=== PATIENT | female | born 1960 | race African-American/Black ===

== ENCOUNTER 2018-11-01 11:15 | Emergency (ER) | payer OTHER ==
[2018-11-01 12:37] LABS: Absolute Lymphocytes (CBC) 2.2 K/uL (0.7-4.9); Absolute Monocytes 0.4 K/uL (0.1-1.3); Absolute Neutrophil 4.9 K/uL (1.8-8.0); Basophils % 0.4 % (0-1.3); Eosinophils % 1.7 % (0-4.4); Hematocrit 39.8 % (36.0-45.0); Lymphocytes % 28.4 % (15.3-44.8); MCH 30.2 pg (27.0-35.0); MCV 88.8 fL (80-100); MPV 9.8 fL (7.6-11.3); Monocytes % 5.8 % (3.3-12.3); RBC Red Blood Cell Count 4.47 M/uL (3.86-4.86)
[2018-11-01] MEDS ORDERED: NA CHLORIDE 0.9% 1,000 ML ONE (12:40)
[2018-11-01] MEDS ORDERED: ONDANSETRON 4 MG/2 ML VIAL ONE (12:40)
[2018-11-01 12:53] LABS: Albumin 4.2 g/dL (3.4-5.0); Bilirubin Total 0.5 mg/dL (0.2-1.0); Potassium 3.4 mmol/L (3.5-5.1); Protein, Total 8.9 g/dL (6.4-8.2)
[2018-11-01 13:37] LABS: Urine Blood NEGATIVE (NEG); Urine Glucose NEGATIVE (NEG); Urine Protein NEGATIVE (NEG); Urine pH 5.5 (5.0-7.0)
--- NOTE | 2018-11-01 16:14 | ER ---
Nurse's Notes [facility] Name: Fang Aldridge Age: 58 yrs Sex: Female : 1960 Arrival Date: 11/01/2018 Time: 11:18 Bed 15 Private MD: Eddie Lincoln R Diagnosis: Nausea;Weakness Presentation: 11/01 11:27 Presenting complaint: Patient states: Headache the last few days, dizziness and nausea la1 since Monday with fatigue. Transition of care: patient was not received from another setting of care. Onset of symptoms was November 01, 2018. Risk Assessment: Do you want to hurt yourself or someone else? Patient reports no desire to harm self or others. Initial Sepsis Screen: Does the patient meet any 2 criteria? No. Patient's initial sepsis screen is negative. Does the patient have a suspected source of infection? No. Patient's initial sepsis screen is negative. Care prior to arrival: None. 11:27 Method Of Arrival: Ambulatory la1 11:27 Acuity: CONNIE 3 la1 Historical: - Allergies: 11:27 No Known Allergies; la1 - Home Meds: 12:42 atorvastatin 10 mg Oral tab 1 tab once daily [Active]; metformin 500 mg Oral tab 1 tab ch 2 times per day [Active]; lisinopril 20 mg/25 mg hydrochlorothiazide Oral tab 1 tab once daily [Active]; meloxicam 7.5 mg oral tab 1 tab once daily [Active]; metoprolol tartrate 100 mg Oral tab 1 tab 2 times per day [Active]; - PMHx: 11:27 Diabetes - NIDDM; Hyperlipidemia; Hypertension; la1 - PSHx: 12:42 Hysterectomy; Appendectomy; ch - Immunization history:: Adult Immunizations up to date. - Social history:: Smoking status: Patient/guardian denies using tobacco. - Ebola Screening: : No symptoms or risks identified at this time. Screenin:31 Abuse screen: Denies threats or abuse. Denies injuries from another. Nutritional ch screening: No deficits noted. Tuberculosis screening: No symptoms or risk factors identified. Fall Risk None identified. Assessment: 12:39 Reassessment: Patient appears in no apparent distress at this time. Patient and/or ch family updated on plan of care and expected duration. Pain level reassessed. Patient is alert, oriented x 3, equal unlabored respirations, skin warm/dry/pink. General: Appears in no apparent distress. comfortable, Behavior is calm, cooperative, appropriate for age. Pain: Complains of pain in head Pain currently is 4 out of 10 on a pain scale. Pain began suddenly. Neuro: No deficits noted. Respiratory: Airway is patent Respiratory effort is even, unlabored, Breath sounds are clear bilaterally. GI: Abdomen is round non-distended, Bowel sounds present X 4 quads. Abd is soft and non tender X 4 quads. Derm: Skin is pink, warm \T\ dry. 13:59 Reassessment: Patient appears in no apparent distress at this time. Patient and/or ch family updated on plan of care and expected duration. Pain level reassessed. Patient is alert, oriented x 3, equal unlabored respirations, skin warm/dry/pink. pt states she is still lightheaded but feeling better. Patient states feeling better. Patient states symptoms have improved. 15:16 Reassessment: Patient appears in no apparent distress at this time. Patient and/or ch family updated on plan of care and expected duration. Pain level reassessed. Patient is alert, oriented x 3, equal unlabored respirations, skin warm/dry/pink. Patient states feeling better. Patient states symptoms have improved. 15:48 Reassessment: Patient appears in no apparent distress at this time. Patient and/or ch family updated on plan of care and expected duration. Pain level reassessed. lab contacted, states it will be about 15 min more. 16:31 Reassessment: AWAITING DEBRA TO COME REVIEW RESULTS WITH PT, SHE STATES SHE HAS QUESTIONS TO WHY SHE IS SO TIRED. 16:41 Reassessment: Patient appears in no apparent distress at this time. RESULTS REVIEWED WITH PT, PT DISCHARGED. Vital Signs: 11:28 BP 173 / 96; Pulse 88; Resp 16; Temp 97.1; Pulse Ox 98% on R/A; Weight 93.89 kg; Height la1 5 ft. 4 in. (162.56 cm); 12:39 BP 141 / 94; Pulse 73; Resp 16; Temp 98.3; Pulse Ox 99% on R/A; Pain 4/10; ch 13:59 BP 157 / 89; Pulse 64; Resp 14; Temp 98.3; Pulse Ox 99% on R/A; Pain 0/10; ch 15:15 BP 158 / 97; Pulse 68; Resp 15; Pulse Ox 98% on R/A; Pain 0/10; ch 16:31 BP 149 / 82; Pulse 70; Resp 16; Temp 98.1; Pulse Ox 99% on R/A; Pain 0/10; ch 11:28 Body Mass Index 35.53 (93.89 kg, 162.56 cm) la1 ED Course: 11:18 Patient arrived in ED. sb2 11:19 Eddie Lincoln MD is Private Physician. sb2 11:27 Triage completed. la1 11:27 Arm band placed on right wrist. la1 11:31 Debra Dubois PA is PHCP. jmm 11:31 Bari Gómez MD is Attending Physician. jmm 12:14 Regina Khan, EDER is Primary Nurse. ch 12:20 Inserted saline lock: 22 gauge in right antecubital area, using aseptic technique. jp3 Blood collected. 12:20 Initial lab(s) drawn, by mi, sent to lab. Urine collected: clean catch specimen, clear, jp3 gabriel colored, Amount Voided: 80mL. 12:30 Pulse ox on. NIBP on. jp3 12:30 Pillow given. jp3 12:30 Patient has correct armband on for positive identification. Placed in gown. Bed in low ch position. Call light in reach. Side rails up X 1. 16:12 EKG done, by gas technician. reviewed by Debra BROOKE. dt2 16:13 Eddie Lincoln MD is Referral Physician. jm 16:33 No apparent distress. Resting quietly. ch 16:33 No provider procedures requiring assistance completed. IV discontinued, intact, ch bleeding controlled, No redness/swelling at site. Pressure dressing applied. Administered Medications: 12:38 Drug: NS 0.9% 1000 ml Route: IV; Rate: 1 bolus; Site: right antecubital; ch 15:48 Follow up: IV Status: Completed infusion; IV Intake: 1000ml ch 12:38 Drug: Zofran 4 mg Route: IVP; Site: right antecubital; ch 12:52 Follow up: Response: No adverse reaction ch 15:48 Follow up: Response: No adverse reaction; Marked relief of symptoms ch Intake: 15:48 IV: 1000ml; Total: 1000ml. ch Outcome: 16:13 Discharge ordered by . lindsey 16:33 Discharged to home ambulatory. 16:33 Condition: stable 16:33 Discharge instructions given to patient, Instructed on discharge instructions, medication usage, Demonstrated understanding of instructions, follow-up care, medications, Prescriptions given X 1. 16:43 Patient left the ED. Signatures: Regina Khan RN RN ch Mickail, Joel, PA PA jmm Attema, Lee, RN RN la1 Cassy Freed sb2 Lucinda Stauffer dt2 Magno Kern jp3 Corrections: (The following items were deleted from the chart) 15:16 15:15 Reassessment: Patient appears in no apparent distress at this time. Patient ch and/or family updated on plan of care and expected duration. Pain level reassessed. Patient is alert, oriented x 3, equal unlabored respirations, skin warm/dry/pink. IV attempts by myself, SIMRAN wang, and jovanna Sparks tolerated well. IV and blood obtained now. ch
--- NOTE | 2018-11-01 16:14 | EDPHYS ---
Physician Documentation [facility] Name: Fang Aldridge Age: 58 yrs Sex: Female : 1960 Arrival Date: 11/01/2018 Time: 11:18 Bed 15 Private MD: Eddie Lincoln R ED Physician Bari Gómez HPI: 11/01 11:52 This 58 yrs old Black Female presents to ER via Ambulatory with complaints of Nausea, jmm Headache, Weakness. 11:52 The patient presents to the emergency department with nausea. Onset: The jmm symptoms/episode began/occurred gradually, 2 day(s) ago. Possible causes: bad food exposure, crab. This is a 58 year old female with a history of DM, HLP, HTN that presents to the ED with complains of nausea after eating crab 2 days ago. Patient states she developed generalized weakness and headache yesterday. headache is similar to previous headaches. Denies cough, chest pain, denies shortness of breath. Patient states having decreased appetite is is concerned she may be dehydrated. Denies abdominal pain. . Historical: - Allergies: 11:27 No Known Allergies; la1 - Home Meds: 12:42 atorvastatin 10 mg Oral tab 1 tab once daily [Active]; metformin 500 mg Oral tab 1 tab ch 2 times per day [Active]; lisinopril 20 mg/25 mg hydrochlorothiazide Oral tab 1 tab once daily [Active]; meloxicam 7.5 mg oral tab 1 tab once daily [Active]; metoprolol tartrate 100 mg Oral tab 1 tab 2 times per day [Active]; - PMHx: 11:27 Diabetes - NIDDM; Hyperlipidemia; Hypertension; la1 - PSHx: 12:42 Hysterectomy; Appendectomy; ch - Immunization history:: Adult Immunizations up to date. - Social history:: Smoking status: Patient/guardian denies using tobacco. - Ebola Screening: : No symptoms or risks identified at this time. ROS: 11:52 Constitutional: Negative for fever, chills, and weight loss, Eyes: Negative for injury, jmm pain, redness, and discharge, Cardiovascular: Negative for chest pain, palpitations, and edema, Respiratory: Negative for shortness of breath, cough, wheezing, and pleuritic chest pain. 11:52 Abdomen/GI: Positive for nausea. 11:52 Neuro: Positive for headache. 11:52 All other systems are negative. Exam: 11:52 Constitutional: This is a well developed, well nourished patient who is awake, alert, jmm and in no acute distress. Head/Face: atraumatic. Eyes: EOMI, no conjunctival erythema appreciated ENT: Moist Mucus Membranes Neck: Trachea midline, Supple Chest/axilla: Normal chest wall appearance and motion. Cardiovascular: Regular rate and rhythm. No edema appreciated Respiratory: Normal respirations, no respiratory distress appreciated Abdomen/GI: Non distended, soft Back: Normal ROM Skin: General appearance color normal MS/ Extremity: Moves all extremities, no obvious deformities appreciated, no edema noted to the lower extremities Neuro: Awake and alert, normal gait Psych: Behavior is normal, Mood is normal, Patient is cooperative and pleasant Vital Signs: 11:28 BP 173 / 96; Pulse 88; Resp 16; Temp 97.1; Pulse Ox 98% on R/A; Weight 93.89 kg; Height la1 5 ft. 4 in. (162.56 cm); 12:39 BP 141 / 94; Pulse 73; Resp 16; Temp 98.3; Pulse Ox 99% on R/A; Pain 4/10; ch 13:59 BP 157 / 89; Pulse 64; Resp 14; Temp 98.3; Pulse Ox 99% on R/A; Pain 0/10; ch 15:15 BP 158 / 97; Pulse 68; Resp 15; Pulse Ox 98% on R/A; Pain 0/10; ch 16:31 BP 149 / 82; Pulse 70; Resp 16; Temp 98.1; Pulse Ox 99% on R/A; Pain 0/10; ch 11:28 Body Mass Index 35.53 (93.89 kg, 162.56 cm) la1 MDM: 11:52 Patient medically [facility]. [facility] 16:13 Data reviewed: vital signs, nurses notes, lab test result(s), EKG. Counseling: I had a [facility] detailed discussion with the patient and/or guardian regarding: the historical points, exam findings, and any diagnostic results supporting the discharge/admit diagnosis, lab results, radiology results, the need for outpatient follow up, to return to the emergency department if symptoms worsen or persist or if there are any questions or concerns that arise at home. 16:13 Response to treatment: the patient's symptoms have resolved after treatment, and as a [facility] result, I will discharge patient. 16:13 ED course: Patient is alert and non toxic in appearance in the ED. Headache is similar jmm to lindsay. Patient is afebrile. Neck is supple i do not suspect sah or meningitis. Patient symptom relieved with IVF and antiemetics. Abdomen is soft and non tender to palpation. patient advised to follow up with pcp or return to the ED if symptoms worsen. . 11/01 12:01 Order name: CBC with Diff; Complete Time: 13:24 [facility] 12 12:01 Order name: CMP; Complete Time: 13:24 [facility] 11/01 12:35 Order name: Urine Dipstick--Ancillary (enter results); Complete Time: 13:50 eb 11/01 12:41 Order name: Troponin (emerg Dept Use Only); Complete Time: 16:13 [facility] 11/01 12:01 Order name: Saline Lock; Complete Time: 13:01 [facility] 11/01 12:01 Order name: Urine Dipstick-Ancillary (obtain specimen); Complete Time: 13:01 [facility] 11/01 12:41 Order name: EKG - Nurse/Tech; Complete Time: 16:07 [facility] Administered Medications: 12:38 Drug: NS 0.9% 1000 ml Route: IV; Rate: 1 bolus; Site: right antecubital; ch 15:48 Follow up: IV Status: Completed infusion; IV Intake: 1000ml 12:38 Drug: Zofran 4 mg Route: IVP; Site: right antecubital; 12:52 Follow up: Response: No adverse reaction 15:48 Follow up: Response: No adverse reaction; Marked relief of symptoms Disposition: 18:02 Co-signature as Attending Physician, Bari Gómez MD. rn Disposition: 11/01/18 16:13 Discharged to Home. Impression: Nausea, Weakness. - Condition is Stable. - Discharge Instructions: Nausea, Adult. - Prescriptions for Zofran ODT 4 mg Oral tablet,disintegrating - place 1 tablet by TRANSLINGUAL route every 4-6 hours; 20 tablet. - Work release form, Medication Reconciliation Form, Thank You Letter, Antibiotic Education, Prescription Opioid Use form. - Follow up: Eddie Lincoln MD; When: 2 - 3 days; Reason: Recheck today's complaints, Continuance of care, Re-evaluation by your physician. Signatures: Dispatcher [employer] EDRegina Dunaway RN Gage Hernandez ch, PA PA jmm Nieto, Roman, MD MD rn Attema, Lee, RN RN la1 Corrections: (The following items were deleted from the chart) 16:43 16:13 11/01/2018 16:13 Discharged to Home. Impression: Nausea; Weakness. Condition is ch Stable. Forms are Medication Reconciliation Form, Thank You Letter, Antibiotic Education, Prescription Opioid Use. Follow up: Eddie Lincoln; When: 2 - 3 days; Reason: Recheck today's complaints, Continuance of care, Re-evaluation by your physician. lindsey
--- NOTE | 2018-11-02 08:29 | EKG ---
Test Date: 2018-11-01 Test Time: 15:59:45 Typesetting Supervisor: DEV MEASUREMENT RESULTS: Intervals: Rate: 64 OH: 188 QRSD: 84 QT: 428 QTc: 441 [place]: P: 19 OH: 188 QRS: 46 T: 51 INTERPRETIVE STATEMENTS: Normal sinus rhythm Normal ECG Compared to ECG 11/07/2007 09:59:24 Sinus bradycardia no longer present Electronically Signed On 11-02-18 08:28:56 DIRECTOR OF [employer] by Howard Winn
== END 2018-11-01 16:43 | disposition home or self-care (01) ==
LOC: ER 11:15
DX: R53.1 Weakness (principal); I10 Essential (primary) hypertension; E78.5 Hyperlipidemia, unspecified; E11.9 Type 2 diabetes mellitus without complications
CPT/HCPCS: 36415; 80053; 81003; 84484; 85025; 93005; 96361; 96374; 99284; J2405; J7030

== ENCOUNTER 2018-12-08 02:43 | Emergency (ER) | payer OTHER ==
[2018-12-08] MEDS ORDERED: NA CHLORIDE 0.9% 500 ML ONE (03:54)
[2018-12-08] MEDS ORDERED: DIPHENHYDRAMINE 50 MG/ML VIAL ONE (03:56)
[2018-12-08] MEDS ORDERED: NA CHLORIDE 0.9% 1,000 ML ONE (03:56)
[2018-12-08] MEDS ORDERED: ACETAMINOPHEN 325 MG TABLET ONE (03:56)
[2018-12-08] MEDS ORDERED: DEXAMETHASONE 10 MG/ML VIAL ONE (03:56)
[2018-12-08] MEDS ORDERED: CLINDAMYCIN 900MG/D5W 900 MG/50 ML IVPB IV ONE (03:56)
[2018-12-08] MEDS ORDERED: FAMOTIDINE 20 MG/2 ML VIAL IV ONE (03:57)
[2018-12-08 03:58] LABS: Absolute Lymphocytes (CBC) 1.4 K/uL (0.7-4.9); Absolute Monocytes 0.7 K/uL (0.1-1.3); Absolute Neutrophil 11.1 K/uL (1.8-8.0); Basophils % 0.4 % (0-1.3); Eosinophils % 0.7 % (0-4.4); Lymphocytes % 10.3 % (15.3-44.8); MPV 10.3 fL (7.6-11.3); Monocytes % 5.3 % (3.3-12.3); RBC Red Blood Cell Count 4.24 M/uL (3.86-4.86)
[2018-12-08 03:59] LABS: Protime INR 1.19
[2018-12-08 04:05] LABS: ALT/SGPT 15 U/L (12-78); AST/SGOT 11 U/L (15-37); Alkaline Phosphatase 125 U/L (45-117); BUN Blood Urea Nitrogen 16 mg/dL (7-18); Bicarbonate 27 mmol/L (21-32); Bilirubin Direct 0.1 mg/dL (0-0.2); Bilirubin Total 0.5 mg/dL (0.2-1.0); Glucose Level 142 mg/dL (74-106); Lipase 175 U/L (73-393); NT PRO-BNP 13 pg/mL (<125); Potassium 3.5 mmol/L (3.5-5.1); Protein, Total 8.4 g/dL (6.4-8.2); Sodium Level 139 mmol/L (136-145); Troponin (Emerg Dept Use Only) < 0.02 ng/mL (0.0-0.045)
--- NOTE | 2018-12-08 04:45 | ER ---
Nurse's Notes [facility] Name: Fang Aldridge Age: 58 yrs Sex: Female : 1960 Arrival Date: 12/08/2018 Time: 02:47 Bed 20 Private MD: Eddie Lincoln R Diagnosis: Acute tonsillitis;Fever, unspecified;Angioneurotic edema;Streptococcal pharyngitis Presentation: 12/08 02:55 Presenting complaint: Patient states: sore throat and nausea since lunch time aa1 yesterday. Also c/o pain to the back of her neck. Transition of care: patient was not received from another setting of care. Onset of symptoms was December 07, 2018. Risk Assessment: Do you want to hurt yourself or someone else? Patient reports no desire to harm self or others. Initial Sepsis Screen: Does the patient meet any 2 criteria? HR > 90 bpm. Does the patient have a suspected source of infection? No. Patient's initial sepsis screen is negative. Care prior to arrival: None. 02:55 Method Of Arrival: Ambulatory aa1 02:55 Acuity: CONNIE 3 aa1 Triage Assessment: 02:57 General: Appears in no apparent distress. comfortable, Behavior is calm, cooperative, aa1 appropriate for age. Historical: - Allergies: 02:57 No Known Allergies; aa1 - Home Meds: 03:01 metoprolol tartrate 100 mg Oral tab 1 tab 2 times per day [Active]; lisinopril 20 mg/25 ca1 mg hydrochlorothiazide Oral tab 1 tab once daily [Active]; metformin 500 mg Oral tab 1 tab 2 times per day [Active]; meloxicam 7.5 mg Oral tab 1 tab once daily [Active]; Atorvastatin Calcium 10mg 1 tablet every morning [Active]; - PMHx: 02:57 Diabetes - NIDDM; Hyperlipidemia; Hypertension; aa1 - PSHx: 02:57 Hysterectomy; Appendectomy; aa1 - Immunization history:: Flu vaccine is not up to date. - Social history:: Smoking status: Patient/guardian denies using tobacco. - Ebola Screening: : Patient denies exposure to infectious person Patient denies travel to an Ebola-affected area in the 21 days before illness onset. - Family history:: not pertinent. Screenin:01 Abuse screen: Denies threats or abuse. Denies injuries from another. Nutritional ca1 screening: No deficits noted. Difficulty chewing/swallowing? Yes. Tuberculosis screening: No symptoms or risk factors identified. Fall Risk None identified. Assessment: 03:01 General: Appears in no apparent distress. ill, Behavior is calm, cooperative, ca1 appropriate for age. Pain: Complains of pain in throat, back of neck, abdomen Pain currently is 6 out of 10 on a pain scale. Aggravated by swallowing. Neuro: Level of Consciousness is awake, alert, obeys commands, Oriented to person, place, time, situation, Appropriate for age. Cardiovascular: Heart tones S1 S2 present Capillary refill < 3 seconds Patient's skin is warm and dry. Respiratory: Airway is patent Trachea midline Respiratory effort is even, unlabored, Respiratory pattern is regular, symmetrical, Breath sounds are clear bilaterally. GI: Abdomen is round non-distended, Bowel sounds present X 4 quads. Abd is soft X 4 quads Reports nausea. : No signs and/or symptoms were reported regarding the genitourinary system. EENT: Throat is reddened. Derm: Skin is intact, is healthy with good turgor, Skin is pink, warm \T\ dry. Musculoskeletal: Circulation, motion, and sensation intact. Capillary refill < 3 seconds. 03:58 Reassessment: patient to CT scan. ca1 05:00 Reassessment: Patient appears in no apparent distress at this time. Patient is alert, ca1 oriented x 3, equal unlabored respirations, skin warm/dry/pink. Vital Signs: 02:57 BP 155 / 95; Pulse 129; Resp 18; Temp 100.3; Pulse Ox 98% on R/A; Weight 91.17 kg; aa1 Height 5 ft. 4 in. (162.56 cm); Pain 0/10; 03:45 BP 141 / 95; Pulse 110; Resp 18; Pulse Ox 95% on R/A; ca1 05:00 BP 141 / 70; Pulse 98; Resp 18; Pulse Ox 100% on R/A; ca1 02:57 Body Mass Index 34.50 (91.17 kg, 162.56 cm) aa1 ED Course: 02:47 Patient arrived in ED. es 02:48 Eddie Lincoln MD is Private Physician. es 02:56 Triage completed. aa1 02:56 Aimee Yin, EDER is Primary Nurse. ca1 02:57 Arm band placed on right wrist. aa1 03:01 Patient has correct armband on for positive identification. Bed in low position. Call ca1 light in reach. Side rails up X 1. Pulse ox on. NIBP on. Warm blanket given. 03:07 Andry Saavedra MD is Attending Physician. karie 03:18 Initial lab(s) drawn, by me, sent to lab. Inserted saline lock: 20 gauge in right ca1 antecubital area, using aseptic technique. Blood collected. 04:[address] via wheelchair. kw1 04:15 Patient moved to radiology via wheelchair. kw1 04:18 X-ray completed. Patient tolerated procedure well. sg4 04:18 Patient moved back from radiology. sg4 04:18 Soft Tissue Neck W/Contr CT In Process Unspecified. EDMS 04:19 XRAY Chest (1 view) In Process Unspecified. EDMS 04:44 Eddie Lincoln MD is Referral Physician. karei 05:00 No provider procedures requiring assistance completed. IV discontinued, intact, ca1 bleeding controlled, No redness/swelling at site. Pressure dressing applied. Administered Medications: 03:18 Drug: NS 0.9% 500 ml Route: IV; Rate: bolus; Site: right antecubital; ca1 05:04 Follow up: Response: No adverse reaction; IV Status: Completed infusion ca1 03:20 Drug: Pepcid 20 mg Route: IVP; Site: right antecubital; ca1 05:05 Follow up: Response: No adverse reaction ca1 03:20 Drug: Tylenol 650 mg Route: PO; ca1 05:06 Follow up: Response: No adverse reaction; Temperature is decreased ca1 03:22 Drug: Benadryl 25 mg Route: IVP; Site: right antecubital; ca1 05:06 Follow up: Response: No adverse reaction ca1 05:06 Follow up: Response: No adverse reaction ca1 03:25 Drug: Decadron - Dexamethasone 10 mg Route: IVP; Site: right antecubital; ca1 05:06 Follow up: Response: No adverse reaction ca1 03:30 Drug: Clindamycin 900 mg Route: IVPB; Infused Over: 30 mins; Site: right antecubital; ca1 05:06 Follow up: Response: No adverse reaction; IV Status: Completed infusion ca1 04:10 Drug: NS 0.9% 1000 ml Route: IV; Rate: 125 ml/hr; Site: right antecubital; ca1 05:20 Follow up: IV Status: Order to discontinue infusion; Patient Discharged ca1 05:00 Drug: Rocephin - (cefTRIAXone) 1 grams Route: IVPB; Infused Over: 30 mins; Site: right ca1 antecubital; 05:20 Follow up: Response: No adverse reaction; Medication administered at discharge.; IV ca1 Status: Completed infusion Intake: Outcome: 04:44 Discharge ordered by MD. tiwari 05:10 Discharged to home ambulatory. ca1 05:10 Condition: stable 05:10 Discharge instructions given to patient, Instructed on discharge instructions, follow up and referral plans. medication usage, Demonstrated understanding of instructions, follow-up care, medications, Prescriptions given X 7 05:19 Patient left the ED. ca1 Signatures: Dispatcher [employer] Crystal Ochoa, RN RN [email or web address] Andry Saavedra MD MD cha Salyer, Edna es Wilhelm, Kimberly kw1 Shelley Elliott 4 Aimee Yin RN RN ca1
--- NOTE | 2018-12-08 04:45 | EDPHYS ---
Physician Documentation [facility] Name: Fang Aldridge Age: 58 yrs Sex: Female : 1960 Arrival Date: 12/08/2018 Time: 02:47 Bed 20 Private MD: Eddie Lincoln R ED Physician Andry Saavedra HPI: 12/08 03:18 This 58 yrs old Black Female presents to ER via Ambulatory with complaints of Sore karie Throat, Nausea, throat swelling. 03:18 The patient presents with sore throat. The patient describes throat pain as burning, karie constant, raw. Onset: The symptoms/episode began/occurred 1 day(s) ago. Severity of symptoms: At their worst the symptoms were mild, in the emergency department the symptoms are unchanged. Modifying factors: The symptoms are alleviated by nothing, the symptoms are aggravated by swallowing. Associated signs and symptoms: Pertinent positives: fever. The patient has not experienced similar symptoms in the past. throat swelling, fever. Historical: - Allergies: 02:57 No Known Allergies; aa1 - Home Meds: 03:01 metoprolol tartrate 100 mg Oral tab 1 tab 2 times per day [Active]; lisinopril 20 mg/25 ca1 mg hydrochlorothiazide Oral tab 1 tab once daily [Active]; metformin 500 mg Oral tab 1 tab 2 times per day [Active]; meloxicam 7.5 mg Oral tab 1 tab once daily [Active]; Atorvastatin Calcium 10mg 1 tablet every morning [Active]; - PMHx: 02:57 Diabetes - NIDDM; Hyperlipidemia; Hypertension; aa1 - PSHx: 02:57 Hysterectomy; Appendectomy; aa1 - Immunization history:: Flu vaccine is not up to date. - Social history:: Smoking status: Patient/guardian denies using tobacco. - Ebola Screening: : Patient denies exposure to infectious person Patient denies travel to an Ebola-affected area in the 21 days before illness onset. - Family history:: not pertinent. ROS: 03:18 Eyes: Negative for injury, pain, redness, and discharge, Neck: Negative for injury, karie pain, and swelling, Cardiovascular: Negative for chest pain, palpitations, and edema, Respiratory: Negative for shortness of breath, cough, wheezing, and pleuritic chest pain, Abdomen/GI: Negative for abdominal pain, nausea, vomiting, diarrhea, and constipation, Back: Negative for injury and pain, : Negative for injury, bleeding, discharge, and swelling, MS/Extremity: Negative for injury and deformity, Skin: Negative for injury, rash, and discoloration, Neuro: Negative for headache, weakness, numbness, tingling, and seizure, Psych: Negative for depression, anxiety, suicide ideation, homicidal ideation, and hallucinations, Allergy/Immunology: Negative for hives, rash, and allergies, Endocrine: Negative for neck swelling, polydipsia, polyuria, polyphagia, and marked weight changes, Hematologic/Lymphatic: Negative for swollen nodes, abnormal bleeding, and unusual bruising. 03:18 Constitutional: Positive for body aches, chills, fever. 03:18 ENT: Positive for hoarseness, sore throat. Exam: 03:18 Eyes: Pupils equal round and reactive to light, extra-ocular motions intact. Lids and karie lashes normal. Conjunctiva and sclera are non-icteric and not injected. Cornea within normal limits. Periorbital areas with no swelling, redness, or edema. ENT: Nares patent. No nasal discharge, no septal abnormalities noted. Tympanic membranes are normal and external auditory canals are clear. Oropharynx with no redness, swelling, or masses, exudates, or evidence of obstruction, uvula midline. Mucous membranes moist. Neck: Trachea midline, no thyromegaly or masses palpated, and no cervical lymphadenopathy. Supple, full range of motion without nuchal rigidity, or vertebral point tenderness. No Meningismus. Chest/axilla: Normal chest wall appearance and motion. Nontender with no deformity. No lesions are appreciated. Respiratory: Lungs have equal breath sounds bilaterally, clear to auscultation and percussion. No rales, rhonchi or wheezes noted. No increased work of breathing, no retractions or nasal flaring. Abdomen/GI: Soft, non-tender, with normal bowel sounds. No distension or tympany. No guarding or rebound. No evidence of tenderness throughout. Back: No spinal tenderness. No costovertebral tenderness. Full range of motion. Female : Normal external genitalia. Skin: Warm, dry with normal turgor. Normal color with no rashes, no lesions, and no evidence of cellulitis. 03:18 Constitutional: The patient appears febrile. 03:18 Head/face: Noted is swelling, tenderness, that is mild, of the right eye, nose, left eye and mouth. 03:18 ENT: Posterior pharynx: Airway: no evidence of obstruction, Tonsils: bilaterally enlarged, with erythema, Uvula: midline, edematous, erythema, swelling, that is mild, erythema, that is moderate, exudate, is not appreciated, peritonsillar mass, is not appreciated, pooling of secretions, is not appreciated. Vital Signs: 02:57 BP 155 / 95; Pulse 129; Resp 18; Temp 100.3; Pulse Ox 98% on R/A; Weight 91.17 kg; aa1 Height 5 ft. 4 in. (162.56 cm); Pain 0/10; 03:45 BP 141 / 95; Pulse 110; Resp 18; Pulse Ox 95% on R/A; ca1 05:00 BP 141 / 70; Pulse 98; Resp 18; Pulse Ox 100% on R/A; ca1 02:57 Body Mass Index 34.50 (91.17 kg, 162.56 cm) aa1 MDM: 03:[address] [facility] 03:23 Data reviewed: vital signs, nurses notes, lab test result(s), EKG, radiologic studies, [facility] CT scan, plain films. 12/08 03:15 Order name: Basic Metabolic Panel; Complete Time: 04:[address] [facility] 12/08 03:15 Order name: CBC with Diff; Complete Time: 04:[address] [facility] 12/08 03:15 Order name: LFT's; Complete Time: 04:[address] [facility] 12/08 03:15 Order name: Magnesium; Complete Time: 04:[address] [facility] 12/08 03:15 Order name: NT PRO-BNP; Complete Time: 04:[address] [facility] 12/08 03:15 Order name: PT-INR; Complete Time: 04:[address] [facility] 12/08 03:15 Order name: Troponin (emerg Dept Use Only); Complete Time: 04:[address] [facility] 12/08 03:15 Order name: XRAY Chest (1 view) [facility] 12/08 03:15 Order name: Strep; Complete Time: 04:[address] [facility] 12/08 03:15 Order name: Soft Tissue Neck W/Contr CT [facility] 12/08 03:15 Order name: Lipase; Complete Time: 04:[address] [facility] 12/08 03:23 Order name: Urine Culture [facility] 01/12 05:07 Order name: Urine Dipstick--Ancillary (enter results) ar5 12/08 03:15 Order name: EKG; Complete Time: 03:[address] [facility] 12/08 03:15 Order name: Cardiac monitoring; Complete Time: 03:[address] [facility] 12/08 03:15 Order name: EKG - Nurse/Tech; Complete Time: 03:[address] [facility] 12/08 03:15 Order name: IV Saline Lock; Complete Time: 03:[address] [facility] 12/08 03:15 Order name: Labs collected and sent; Complete Time: 03:[address] [facility] 12/08 03:15 Order name: O2 Per Protocol; Complete Time: 03:[address] [facility] 12/08 03:15 Order name: O2 Sat Monitoring; Complete Time: 03:[address] [facility] 12/08 03:23 Order name: Urine Dipstick-Ancillary (obtain specimen); Complete Time: 04:[address] [facility] Administered Medications: 03:18 Drug: NS 0.9% 500 ml Route: IV; Rate: bolus; Site: right antecubital; ca1 05:04 Follow up: Response: No adverse reaction; IV Status: Completed infusion ca1 03:20 Drug: Pepcid 20 mg Route: IVP; Site: right antecubital; ca1 05:05 Follow up: Response: No adverse reaction ca1 03:20 Drug: Tylenol 650 mg Route: PO; ca1 05:06 Follow up: Response: No adverse reaction; Temperature is decreased ca1 03:22 Drug: Benadryl 25 mg Route: IVP; Site: right antecubital; ca1 05:06 Follow up: Response: No adverse reaction ca1 05:06 Follow up: Response: No adverse reaction ca1 03:25 Drug: Decadron - Dexamethasone 10 mg Route: IVP; Site: right antecubital; ca1 05:06 Follow up: Response: No adverse reaction ca1 03:30 Drug: Clindamycin 900 mg Route: IVPB; Infused Over: 30 mins; Site: right antecubital; ca1 05:06 Follow up: Response: No adverse reaction; IV Status: Completed infusion ca1 04:10 Drug: NS 0.9% 1000 ml Route: IV; Rate: 125 ml/hr; Site: right antecubital; ca1 05:20 Follow up: IV Status: Order to discontinue infusion; Patient Discharged ca1 05:00 Drug: Rocephin - (cefTRIAXone) 1 grams Route: IVPB; Infused Over: 30 mins; Site: right ca1 antecubital; 05:20 Follow up: Response: No adverse reaction; Medication administered at discharge.; IV ca1 Status: Completed infusion Disposition: 12/08/18 04:44 Discharged to Home. Impression: Acute tonsillitis, Fever, unspecified, Angioneurotic edema, Streptococcal pharyngitis. - Condition is Stable. - Discharge Instructions: Fever, Adult, Tonsillitis, Angioedema, Tonsillitis, [id number], Angioedema, [id number]. - Prescriptions for Benadryl 25 mg Oral Capsule - take 1 capsule by ORAL route every 6 hours As needed; 30 tablet. Clindamycin HCl 300 mg Oral Capsule - take 1 capsule by ORAL route every 6 hours for 10 days; 40 capsule. Norvasc 5 mg Oral Tablet - take 1 tablet by ORAL route once daily stop lisinopril; 20 tablet. Pepcid 20 mg Oral Tablet - take 1 tablet by ORAL route every 12 hours for 10 days; 20 tablet. EpiPen 0.3 mg Injection auto- injector - inject 1 pen by INTRAMUSCULAR route one time Inject into the outer portion of the thigh, through clothing if necessary. Indicated in the emergency treatment of allergic reactions; 1 Container. Hydrochlorothiazide 12.5 mg Oral Tablet - take 1 tablet by ORAL route once daily; 30 tablet. Medrol (Massimo) 4 mg Oral Tablets, Dose Pack - take 1 tablet by ORAL route as directed - follow package instructions; 1 packet. - Medication Reconciliation Form, Thank You Letter, Antibiotic Education, Prescription Opioid Use form. - Follow up: Eddie Lincoln; When: 2 - 3 days; Reason: Recheck today's complaints, Continuance of care, Re-evaluation by your physician. - Problem is new. - Symptoms have improved. Signatures: Dispatcher [employer] EDMS Crystal Juarez RN RN aa1 Andry Saavedra MD MD cha Acob, Cheryl, RN RN ca1 Corrections: (The following items were deleted from the chart) 05:19 04:44 12/08/2018 04:44 Discharged to Home. Impression: Acute tonsillitis; Fever, ca1 unspecified; Angioneurotic edema; Streptococcal pharyngitis. Condition is Stable. Discharge Instructions: Fever, Adult, Tonsillitis, Angioedema, Tonsillitis, [id number], Angioedema, [id number]. Prescriptions for Benadryl 25 mg Oral Capsule - take 1 capsule by ORAL route every 6 hours As needed; 30 tablet, Clindamycin HCl 300 mg Oral Capsule - take 1 capsule by ORAL route every 6 hours for 10 days; 40 capsule, Pepcid 20 mg Oral Tablet - take 1 tablet by ORAL route every 12 hours for 10 days; 20 tablet, Prednisone 20 mg Oral Tablet - take 2 tablet by ORAL route once daily for 5 days; 10 tablet, EpiPen 0.3 mg Injection auto-injector - inject 1 pen by INTRAMUSCULAR route one time Inject into the outer portion of the thigh, through clothing if necessary. Indicated in the emergency treatment of allergic reactions; 1 Container, Hydrochlorothiazide 12.5 mg Oral Tablet - take 1 tablet by ORAL route once daily; 30 tablet, Norvasc 5 mg Oral Tablet - take 1 tablet by ORAL route once daily stop lisinopril; 20 tablet. and Forms are Medication Reconciliation Form, Thank You Letter, Antibiotic Education, Prescription Opioid Use. Follow up: Eddie Lincoln; When: 2 - 3 days; Reason: Recheck today's complaints, Continuance of care, Re-evaluation by your physician. Problem is new. Symptoms have improved. karie
[2018-12-08] MEDS ORDERED: CEFTRIAXONE/SWI 1gm 1 GM/10 ML SYR ONE (05:06)
[2018-12-08 06:01] LABS: Urine Blood NEGATIVE (NEG); Urine Glucose NEGATIVE (NEG); Urine Protein NEGATIVE (NEG)
--- NOTE | 2018-12-08 06:36 | EKG ---
Test Date: 2018-12-08 Test Time: 03:36:32 Cost Control Analyst: ANTHONY MEASUREMENT RESULTS: Intervals: Rate: 109 [place]: 142 QRSD: 78 QT: 346 QTc: 465 [place]: P: 60 [place]: 142 QRS: 24 T: 53 INTERPRETIVE STATEMENTS: Sinus tachycardia Nonspecific T wave abnormality Abnormal ECG Compared to ECG 11/01/2018 15:59:45 T-wave abnormality now present Sinus rhythm no longer present Electronically Signed On 12-08-18 06:35:44 CIRCULATOR by Howard Winn
--- NOTE | 2018-12-08 11:06 | RAD REPORT ---
EXAM DESCRIPTION: CT - Soft Tissue Neck W/Contr - 12/08/2018 5:00 am CLINICAL HISTORY: Sore throat, nausea, neck pain, diabetes history A preliminary report was provided at the time of the study and reviewed prior to final report. TECHNIQUE: During dynamic enhancement using 100 milliliters nonionic IV contrast, axial 5 millimeter thick images of the neck were obtained. All CT scans are performed using dose optimization technique as appropriate and may include automated exposure control or mA/KV adjustment according to patient size. FINDINGS: Intracranial portion the examination is unremarkable. No globe or orbital content abnormal ity. Mastoid air cells are clear. No paranasal sinus acute finding. Enhancement is seen in each tonsi l. No tonsil or peritonsillar abscess. No retropharyngeal abscess or soft tissue thickening. Paraphar yngeal fat is normal. Mild enhancement seen along each fossa of Rosenm[place]. Nasopharyngeal mucosa yina ws a mild enhancement of the surface. No adenoid hypertrophy. No significant soft palate thickening. No tongue base or epiglottis abnormality. Vocal cords are norm al. Parotid, submandibular and thyroid gland tissues show no suspicious findings. No suspicious lymphaden opathy. IMPRESSION: Tonsillitis and pharyngitis pattern evident without abscess or other complicating factor .
--- NOTE | 2018-12-08 11:08 | RAD REPORT ---
EXAM DESCRIPTION: RAD - Chest Single View - 12/08/2018 4:21 am CLINICAL HISTORY: Nausea, sore throat, neck pain, cough COMPARISON: February 2017 TECHNIQUE: AP portable chest image was obtained 0418 hours . FINDINGS: No peripheral mass, consolidation or failure finding. Chronic interstitial lung disease is present not clearly different from comparison. Minimal edema or infiltrate could be masked. Heart an d vasculature are normal. No measurable pleural effusion and no pneumothorax. No acute bony abnormali ty seen. No acute aortic findings suspected. IMPRESSION: No acute cardiopulmonary process. Chronic interstitial lung disease is present similar to comparison. This could potentially mask early edema or infiltrate.
== END 2018-12-08 05:19 | disposition home or self-care (01) ==
LOC: ER 02:43
DX: J02.0 Streptococcal pharyngitis (principal); J03.90 Acute tonsillitis, unspecified; T78.3XXA Angioneurotic edema, initial encounter; I10 Essential (primary) hypertension; E78.5 Hyperlipidemia, unspecified; E11.9 Type 2 diabetes mellitus without complications
CPT/HCPCS: 36415; 70491; 71045; 80048; 80076; 81003; 83690; 83735; 83880; 84484; 85025; 85610; 87081; 87086; 87088; 93005; 96365; 96375; 99284; J0696; J1100; J7030; Q9967

== ENCOUNTER 2019-12-10 10:27 | Emergency (ER) | payer OTHER ==
--- OUTSIDE RECORDS SUMMARY | 2019-12-10 10:28 | XMS REPORT ---
:1960 Author Organization [facility] Address [address] [place] [address] [address] [place] [address] Care Team Providers Name Role Phone Unavailable Unavailable Unavailable Payers Payer Name Policy Type Policy Number Effective Date Expiration Date Problems This patient has no known problems. Allergies, Adverse Reactions, Alerts Allergy Name Allergy Status Severity Reaction(s) Onset Inactive Treating Comments Type Date Date Clinician No Known Drug DA Active U Intolerances - 00:00: 00 No Known DA Active U 2006- Contrast 6- Allergies 00:00: 00 No Known Drug DA Active U Allergies -14 00:00: 00 No Known Food DA Active U 2006-0 Allergies -14 00:00: 00 No Known Other DA Active U Allergies - 00:00: 00 Medications This patient has no known medications.
--- NOTE | 2019-12-10 12:02 | RAD REPORT ---
EXAM DESCRIPTION: US - UPPER EXTREMITY VENOUS UNILATE - 12/10/2019 11:53 am CLINICAL HISTORY: PAIN Arm pain and swelling COMPARISON: No comparisons FINDINGS: Left upper extremity venous system was interrogated with Doppler technique. Normal flow, c ompressibility and augmentation was noted. There is no DVT present. IMPRESSION: No evidence of left upper extremity deep venous thrombosis.
--- NOTE | 2019-12-10 12:26 | ER ---
Nurse's Notes [facility] Name: Fang Aldridge Age: 59 yrs Sex: Female : 1960 Arrival Date: 12/10/2019 Time: 10:29 Bed 26 Private MD: Eddie Lincoln R Diagnosis: Left arm pain;Dermatitis of left arm Presentation: 12/10 10:38 Presenting complaint: Patient states: woke up this morning with left arm pain, thought iw she slept on it, c/o pain to left bicep to hand , also had numbness to finger. Transition of care: patient was not received from another setting of care. Onset of symptoms was December 10, 2019. Risk Assessment: Do you want to hurt yourself or someone else? Patient reports no desire to harm self or others. Initial Sepsis Screen: Does the patient meet any 2 criteria? No. Patient's initial sepsis screen is negative. Does the patient have a suspected source of infection? No. Patient's initial sepsis screen is negative. Care prior to arrival: None. 10:38 Method Of Arrival: Ambulatory iw 10:38 Acuity: CONNIE 3 iw Historical: - Allergies: 10:41 No Known Allergies; iw - PMHx: 10:41 Diabetes - NIDDM; Hyperlipidemia; Hypertension; iw - PSHx: 10:41 Hysterectomy; Appendectomy; iw - Immunization history:: Adult Immunizations up to date. - Social history:: Smoking status: Patient/guardian denies using tobacco. - Ebola Screening: : Patient negative for fever greater than or equal to 101.5 degrees Fahrenheit, and additional compatible Ebola Virus Disease symptoms Patient denies exposure to infectious person Patient denies travel to an Ebola-affected area in the 21 days before illness onset No symptoms or risks identified at this time. Screenin:03 Abuse screen: Denies threats or abuse. Denies injuries from another. Nutritional ca1 screening: No deficits noted. Tuberculosis screening: No symptoms or risk factors identified. Fall Risk None identified. Assessment: 11:03 General: Appears in no apparent distress. comfortable, Behavior is calm, cooperative, ca1 appropriate for age. Pain: Complains of pain in left arm Pain currently is 7 out of 10 on a pain scale. Neuro: Level of Consciousness is awake, alert, obeys commands, Oriented to person, place, time, situation, Appropriate for age. Cardiovascular: Heart tones S1 S2 present Capillary refill < 3 seconds Patient's skin is warm and dry. Respiratory: Airway is patent Respiratory effort is even, unlabored, Respiratory pattern is regular, symmetrical, Breath sounds are clear bilaterally. GI: Abdomen is round non-distended, Bowel sounds present X 4 quads. Abd is soft and non tender X 4 quads. : No deficits noted. No signs and/or symptoms were reported regarding the genitourinary system. EENT: No deficits noted. No signs and/or symptoms were reported regarding the EENT system. Derm: Skin is intact, is healthy with good turgor, Skin is pink, warm \T\ dry. Musculoskeletal: Circulation, motion, and sensation intact. Capillary refill < 3 seconds. 12:12 Reassessment: Patient appears in no apparent distress at this time. Patient and/or ca1 family updated on plan of care and expected duration. Pain level reassessed. Patient is alert, oriented x 3, equal unlabored respirations, skin warm/dry/pink. 12:44 Reassessment: Patient appears in no apparent distress at this time. Patient is alert, ca1 oriented x 3, equal unlabored respirations, skin warm/dry/pink. Vital Signs: 10:41 BP 144 / 91; Pulse 110; Resp 16; Temp 97.4; Pulse Ox 97% on R/A; Weight 94.8 kg; Height iw 5 ft. 4 in. (162.56 cm); Pain 10/10; 11:55 BP 144 / 84; Pulse 74; Resp 16 S; Pulse Ox 100% on R/A; ca1 12:44 BP 126 / 94; Pulse 78; Resp 17 S; Pulse Ox 100% on R/A; ca1 10:41 Body Mass Index 35.87 (94.80 kg, 162.56 cm) iw ED Course: 10:29 Patient arrived in ED. mr 10:30 Eddie Lincoln MD is Private Physician. mr 10:40 Triage completed. iw 10:41 Arm band placed on. iw 10:45 Pelon Lew MD is Attending Physician. ps1 10:48 Aimee Yin, EDER is Primary Nurse. ca1 11:03 Patient has correct armband on for positive identification. Bed in low position. Call ca1 light in reach. Side rails up X 1. Pulse ox on. NIBP on. Warm blanket given. 11:03 No provider procedures requiring assistance completed. Patient did not have IV access ca1 during this emergency room visit. 11:07 UPPER EXTREMITY VENOUS UNILATE In Process Unspecified. EDMS 12:25 Eddie Lincoln MD is Referral Physician. ps1 Administered Medications: 12: Drug: Decadron - Dexamethasone 10 mg {Note: GIVEN PO.} Route: IVP; Site: Other; ca1 12:38 Follow up: Response: No adverse reaction mg2 12:28 Drug: Motrin 600 mg Route: PO; ca1 12:38 Follow up: Response: No adverse reaction mg2 Outcome: 12:25 Discharge ordered by MD. ps1 12:45 Discharged to home ambulatory. ca1 12:45 Condition: stable 12:45 Discharge instructions given to patient, Instructed on discharge instructions, follow up and referral plans. medication usage, Demonstrated understanding of instructions, follow-up care, medications, Prescriptions given X 2. 12:45 Patient left the ED. ca1 Signatures: Dispatcher [employer] EDVT Talia Massey mr Sigrid Hutchinson, EDER RN iw Pelon Lew MD MD ps1 Colton Stauffer RN RN mg2 Aimee Yin RN RN ca1
--- NOTE | 2019-12-10 12:26 | EDPHYS ---
Physician Documentation [facility] Name: Fang Aldridge Age: 59 yrs Sex: Female : 1960 Arrival Date: 12/10/2019 Time: 10:29 Bed 26 Private MD: Eddie Lincoln R ED Physician Pelon Lew HPI: 12/10 12:19 This 59 yrs old Black Female presents to ER via Ambulatory with complaints of Arm Pain. ps1 12:19 patient states that she has atraumatic swelling of the left arm localized to the biceps ps1 muscle. She works in a [email or web address] type position and is right hand dominant and cant think of any incident of left arm involvement. Pain is mild to moderate and worse with movement or squeezing the area. Mild area of circumscribed induration that appears CW contact dermatitis. Patient cannot think of anything other than her shirt that is new. She does have a circumferential linear marking on where the end of the sleeve contacts the skin. . Historical: - Allergies: 10:41 No Known Allergies; iw - PMHx: 10:41 Diabetes - NIDDM; Hyperlipidemia; Hypertension; iw - PSHx: 10:41 Hysterectomy; Appendectomy; iw - Immunization history:: Adult Immunizations up to date. - Social history:: Smoking status: Patient/guardian denies using tobacco. - Ebola Screening: : Patient negative for fever greater than or equal to 101.5 degrees Fahrenheit, and additional compatible Ebola Virus Disease symptoms Patient denies exposure to infectious person Patient denies travel to an Ebola-affected area in the 21 days before illness onset No symptoms or risks identified at this time. ROS: 12:19 Constitutional: Negative for fever, chills, and weight loss, Eyes: Negative for injury, ps1 pain, redness, and discharge, ENT: Negative for injury, pain, and discharge, Cardiovascular: Negative for chest pain, palpitations, and edema, Respiratory: Negative for shortness of breath, cough, wheezing, and pleuritic chest pain, Abdomen/GI: Negative for abdominal pain, nausea, vomiting, diarrhea, and constipation, MS/Extremity: Negative for injury and deformity, Neuro: Negative for headache, weakness, numbness, tingling, and seizure, Psych: Negative for depression, anxiety, suicide ideation, homicidal ideation, and hallucinations. 12:19 Skin: Positive for urticarial appearing wheels on the left arm with circumfrential linear yohana where the skin contacts the shirt sleeve. Exam: 12:19 Constitutional: This is a well developed, well nourished patient who is awake, alert, ps1 and in no acute distress. Head/Face: Normocephalic, atraumatic. Eyes: Pupils equal round and reactive to light, extra-ocular motions intact. Lids and lashes normal. Conjunctiva and sclera are non-icteric and not injected. Chest/axilla: Normal chest wall appearance and motion. Nontender with no deformity. No lesions are appreciated. Cardiovascular: Regular rate and rhythm. No gallops, murmurs, or rubs. Normal PMI, no JVD. No pulse deficits. Respiratory: Lungs have equal breath sounds bilaterally, clear to auscultation and percussion. No rales, rhonchi or wheezes noted. No increased work of breathing, no retractions or nasal flaring. Abdomen/GI: Soft, non-tender, with normal bowel sounds. No distension or tympany. No guarding or rebound. No evidence of tenderness throughout. Skin: Warm, dry with normal turgor. Normal color with no rashes, no lesions, and no evidence of cellulitis. MS/ Extremity: Pulses equal, no cyanosis. Neurovascular intact. Full, normal range of motion. Neuro: Awake and alert, GCS 15, oriented to person, place, time, and situation. Cranial nerves II-XII grossly intact. Sensory grossly intact. Vital Signs: 10:41 BP 144 / 91; Pulse 110; Resp 16; Temp 97.4; Pulse Ox 97% on R/A; Weight 94.8 kg; Height iw 5 ft. 4 in. (162.56 cm); Pain 10/10; 11:55 BP 144 / 84; Pulse 74; Resp 16 S; Pulse Ox 100% on R/A; ca1 12:44 BP 126 / 94; Pulse 78; Resp 17 S; Pulse Ox 100% on R/A; ca1 10:41 Body Mass Index 35.87 (94.80 kg, 162.56 cm) iw MDM: 11:23 Patient medically screened. snw 12:19 Differential diagnosis: contusion, contact dermatitis. DVT, tendonitis, and others. ps1 Data reviewed: vital signs, nurses notes. 12/10 10:59 Order name: UPPER EXTREMITY VENOUS UNILATE; Complete Time: 12:15 EDMS Administered Medications: 12:26 Drug: Decadron - Dexamethasone 10 mg {Note: GIVEN PO.} Route: IVP; Site: Other; ca1 12:38 Follow up: Response: No adverse reaction mg2 12:28 Drug: Motrin 600 mg Route: PO; ca1 12:38 Follow up: Response: No adverse reaction mg2 Disposition: 12/10/19 12:25 Discharged to Home. Impression: Left arm pain, Dermatitis of left arm. - Condition is Stable. - Discharge Instructions: Contact Dermatitis, Musculoskeletal Pain. - Prescriptions for Anaprox DS 550 mg Oral Tablet - take 1 tablet by ORAL route every 12 hours As needed; 20 tablet. Benadryl 25 mg Oral Capsule - take 1 capsule by ORAL route every 6 hours As needed; 30 tablet. - Medication Reconciliation Form, Thank You Letter, Antibiotic Education, Prescription Opioid Use form. - Follow up: Eddie Lincoln MD; When: 48 Hours; Reason: Recheck today's complaints, Continuance of care, Re-evaluation by your physician. Follow up: Emergency Department; When: As needed; Reason: Fever > 102 F, Worsening of condition. - Problem is new. - Symptoms have improved. Signatures: Dispatcher [employer] EDNH Monica Weathers, ORDER DEPARTMENT SUPERVISOR-C ORDER DEPARTMENT SUPERVISOR-Csnw Sigrid Hutchinson, EDER RN iw Pelon Lew MD MD ps1 Aimee Yin RN RN ca1 Colton Stauffer RN mg2 Corrections: (The following items were deleted from the chart) 10:59 10:54 Extremity Venous [email or web address] ordered. [facility] ED[facility] 12:45 12:25 12/10/2019 12:25 Discharged to Home. Impression: Left arm pain; Dermatitis of ca1 left arm. Condition is Stable. Forms are Medication Reconciliation Form, Thank You Letter, Antibiotic Education, Prescription Opioid Use. Follow up: Eddie Lincoln; When: 48 Hours; Reason: Recheck today's complaints, Continuance of care, Re-evaluation by your physician. Follow up: Emergency Department; When: As needed; Reason: Fever > 102 F, Worsening of condition. Problem is new. Symptoms have improved. ps1
[2019-12-10] MEDS ORDERED: IBUPROFEN 200 MG TAB PO ONE (12:29)
[2019-12-10] MEDS ORDERED: dexAMETHasone 10 MG/ML VIAL ONE (12:29)
[2019-12-10] MEDS ORDERED: IBUPROFEN 400 MG TAB ONE (12:29)
[2019-12-10 12:51] VITALS: TEMP 97.4
[2019-12-10 12:52] VITALS: O2SAT 100
[2019-12-10 12:54] VITALS: BP 126/94
== END 2019-12-10 12:45 | disposition home or self-care (01) ==
LOC: ER 10:27
DX: L30.9 Dermatitis, unspecified (principal); I10 Essential (primary) hypertension
CPT/HCPCS: 93971; 96374; 99284; J1100

== ENCOUNTER 2020-05-08 15:47 | Emergency (ER) | payer OTHER ==
--- OUTSIDE RECORDS SUMMARY | 2020-05-08 15:49 | XMS REPORT | Continuity of Care Document ---
:1960 Author Organization [facility] t Address [address] [place] [address] [address] [place] [address] Care Team Providers Name Role Phone Unavailable Unavailable Unavailable Payers Payer Name Policy Type Policy Number Effective Date Expiration Date S ource Problems This patient has no known problems. Allergies, Adverse Reactions, Alerts Allergy Allergy Status Severity Reaction(s) Onset Inactive Treating Comm ents Source Name Type Date Date Clinician No Known DA Active U 2006- [facility] [place] No Known DA Active U 2006- [facility] [place] No Known DA Active U 2006- [facility] [place] No Known DA Active U 2006-0 [facility] [place] No Known DA Active U 2006[facility]0 [facility] [place] Medications This patient has no known medications. Procedures This patient has no known procedures. Results This patient has no known results.
[2020-05-08 17:21] LABS: Protime INR 1.1
--- NOTE | 2020-05-08 17:23 | RAD REPORT ---
EXAM DESCRIPTION: RAD - Chest Single View - 05/08/2020 4:59 pm CLINICAL HISTORY: SOB COMPARISON: Single-view chest November 2018 TECHNIQUE: AP portable chest image was obtained 05/08/2020 4:59 pm . FINDINGS: Lungs are clear. Heart and vasculature are normal. No measurable pleural effusion and no p neumothorax. No acute bony abnormality seen. No acute aortic findings suspected. IMPRESSION: No acute cardiopulmonary process. No significant interval change
[2020-05-08 17:31] LABS: Absolute Lymphocytes (CBC) 1.9 K/uL (0.7-4.9); Hematocrit 35.5 % (36.0-45.0); Lymphocytes % 22.3 % (15.3-44.8); MPV 9.8 fL (7.6-11.3); RBC Red Blood Cell Count 4.44 M/uL (3.86-4.86)
[2020-05-08 17:41] LABS: ALT/SGPT 21 U/L (12-78); AST/SGOT 18 U/L (15-37); Albumin 3.9 g/dL (3.4-5.0); Alkaline Phosphatase 160 U/L (45-117); BUN Blood Urea Nitrogen 12 mg/dL (7-18); Bicarbonate 28 mmol/L (21-32); Bilirubin Direct < 0.1 mg/dL (0-0.2); Bilirubin Total 0.4 mg/dL (0.2-1.0); Glucose Level 115 mg/dL (74-106); Magnesium 2.2 mg/dL (1.8-2.4); NT PRO-BNP 29 pg/mL (<125); Potassium 3.6 mmol/L (3.5-5.1); Protein, Total 8.3 g/dL (6.4-8.2); Sodium Level 139 mmol/L (136-145); Troponin (Emerg Dept Use Only) < 0.02 ng/mL (0.0-0.045)
[2020-05-08] MEDS ORDERED: METHYLPREDNISOLONE 125 MG INJ ONE (18:00)
--- NOTE | 2020-05-08 18:36 | RAD REPORT ---
EXAM DESCRIPTION: CT - Soft Tissue Neck W/Contr - 05/08/2020 6:09 pm CLINICAL HISTORY: dysphagia COMPARISON: Soft Tissue Neck W/Contr dated 12/08/2018 TECHNIQUE: During dynamic enhancement using 100 milliliters nonionic IV contrast, axial 5 millimeter thick images of the neck were obtained. All CT scans are performed using dose optimization technique as appropriate and may include automated exposure control or mA/KV adjustment according to patient size. FINDINGS: Intracranial portion the examination is unremarkable. No globe or orbital content abnormal ity. Mastoid air cells and paranasal sinuses are clear. No pharyngeal mucosal mass or asymmetry. No tonsil or tongue base abnormality seen. Epiglottis is nor mal. No vocal cord abnormality seen. The parotid, submandibular and thyroid gland tissues are normal. No vascular abnormality. No mass or lymphadenopathy in the soft tissues. Bony degenerative changes are present. C5-6 disc space narrowing is present with bony foraminal encro achment at C5-6 and C6-7. IMPRESSION: Contrast-enhanced CT neck imaging showing no significant or suspicious finding.
--- NOTE | 2020-05-08 18:47 | ER ---
Nurse's Notes [facility] Name: Fang Aldridge Age: 59 yrs Sex: Female : 1960 Arrival Date: 05/08/2020 Time: 15:50 Bed 23 Private MD: Eddie Lincoln R Diagnosis: Dysphagia Presentation: 05/08 15:53 Chief complaint: Patient states: "Had a mild headache yesterday after work. Took Advil, ca1 laid down, I started having panic attacks and I feel like my throat closing down. Since then, every time I lay down, I am having these panic attacks". Coronavirus screen: Proceed with normal triage. Patient denies a cough. Patient denies shortness of breath or difficulty breathing. Patient denies measured and/or subjective temperature greater than 100.4F prior to today's visit. Patient denies travel on a cruise ship or to a country the [facility] currently lists as an affected area. Patient denies contact with known and/or suspected case of COVID-19. Ebola Screen: Patient negative for fever greater than or equal to 101.5 degrees Fahrenheit, and additional compatible Ebola Virus Disease symptoms Patient denies exposure to infectious person. Patient denies travel to an Ebola-affected area in the 21 days before illness onset. No symptoms or risks identified at this time. Initial Sepsis Screen: Does the patient meet any 2 criteria? No. Patient's initial sepsis screen is negative. Does the patient have a suspected source of infection? No. Patient's initial sepsis screen is negative. Risk Assessment: Do you want to hurt yourself or someone else? Patient reports no desire to harm self or others. Onset of symptoms was May 08, 2020. 15:53 Method Of Arrival: Ambulatory ca1 15:53 Acuity: CONNIE 3 ca1 Triage Assessment: 19:15 Headache History: Denies prior headaches. Pain: Also complains of no other associated iw symptoms. 19:15 Pain: Pain began. iw 19:15 Pain: Pain. iw Historical: - Allergies: 15:59 No Known Allergies; ca1 - Home Meds: 15:59 metformin 500 mg Oral tab 1 tab 2 times per day [Active]; metoprolol tartrate 100 mg ca1 Oral tab 1 tab 2 times per day [Active]; Atorvastatin Calcium 10mg 1 tablet every morning [Active]; amlodipine 10 mg tab 1 tab once daily [Active]; hydrochlorothiazide 25 mg Oral tab 1 tab once daily [Active]; - PMHx: 15:59 Diabetes - NIDDM; Hyperlipidemia; Hypertension; ca1 - PSHx: 15:59 Hysterectomy; Appendectomy; ca1 - Immunization history:: Adult Immunizations up to date. - Social history:: Smoking status: Patient denies any tobacco usage or history of. Screenin:37 Abuse screen: Denies threats or abuse. Denies injuries from another. Nutritional iw screening: No deficits noted. Tuberculosis screening: No symptoms or risk factors identified. 19:13 Fall Risk None identified. iw Assessment: 16:37 General: Appears in no apparent distress. comfortable, Behavior is calm, cooperative. iw Pain: Denies pain. Neuro: Level of Consciousness is awake, alert, obeys commands, Oriented to person, place, time, situation, Moves all extremities. Full function. Neuro: Reports difficulty swallowing since yesterday. Cardiovascular: Patient's skin is warm and dry. Respiratory: Respiratory effort is even, unlabored, Respiratory pattern is regular, symmetrical. GI: Reports diarrhea. EENT: Reports difficulty swallowing feels like her throat is tightening, worsens when she lies back, has been told there was a problem in her throat and was supposed to follow up with a doctor in [place] but she never did, always feels like there is something in her throat but yesterday it got worse and it made her panic . Derm: Skin is intact, is healthy with good turgor. Musculoskeletal: Range of motion: intact in all extremities. 17:45 Reassessment: Patient appears in no apparent distress at this time. Patient and/or iw family updated on plan of care and expected duration. Pain level reassessed. Patient is alert, oriented x 3, equal unlabored respirations, skin warm/dry/pink. 18:26 Reassessment: Patient appears in no apparent distress at this time. Patient and/or iw family updated on plan of care and expected duration. Pain level reassessed. Patient is alert, oriented x 3, equal unlabored respirations, skin warm/dry/pink. Vital Signs: 15:53 BP 175 / 96; Pulse 72; Resp 16 S; Temp 97.1(TE); Pulse Ox 100% on R/A; Weight 97.52 kg ca1 (R); Height 5 ft. 4 in. (162.56 cm) (R); Pain 0/10; 17:07 BP 158 / 85; Pulse 64; Resp 16; Pulse Ox 98% on R/A; iw 15:53 Body Mass Index 36.90 (97.52 kg, 162.56 cm) ca1 ED Course: 15:50 Patient arrived in ED. ag5 15:50 Eddie Lincoln MD is Private Physician. ag5 15:56 Triage completed. ca1 15:59 Arm band placed on right wrist. ca1 16:27 Sigrid Hutchinson, RN is Primary Nurse. iw 16:28 Andry Collins PA is PHCP. cp 16:28 Arthur Lowe MD is Attending Physician. cp 17:00 Inserted saline lock: 20 gauge in left antecubital area, using aseptic technique. iw 17:01 XRAY Chest (1 view) In Process Unspecified. EDMS 18:08 CT Soft Tissue Neck W/contr In Process Unspecified. EDMS 18:46 Eddie Lincoln MD is Referral Physician. cp 19:13 Patient has correct armband on for positive identification. iw 19:13 No provider procedures requiring assistance completed. IV discontinued, intact, iw bleeding controlled, No redness/swelling at site. Pressure dressing applied. Administered Medications: 18:00 Drug: SOLU-Medrol 125 mg Route: IVP; Site: left antecubital; iw 18:40 Follow up: Response: No adverse reaction iw Outcome: 18:46 Discharge ordered by MD. cp 19:15 Discharged to home ambulatory. iw 19:15 Condition: good 19:15 Discharge instructions given to patient, Instructed on discharge instructions, follow up and referral plans. medication usage, Demonstrated understanding of instructions, follow-up care, medications, Prescriptions given X 2. 19:16 Patient left the ED. iw Signatures: Dispatcher [employer] EDMS Sigrid Hutchinson RN RN iw Andry Collins PA PA cp Acob, Cheryl, RN RN ca1 Akanksha Chi ag5
--- NOTE | 2020-05-08 18:47 | EDPHYS ---
Physician Documentation [facility] Name: Fang Aldridge Age: 59 yrs Sex: Female : 1960 Arrival Date: 05/08/2020 Time: 15:50 Bed 23 Private MD: Eddie Lincoln R ED Physician Arthur Lowe HPI: 05/08 17:00 This 59 yrs old Black Female presents to ER via Ambulatory with complaints of cp Difficulty Swallowing. 17:00 The patient presents with dysphagia, of both solids and liquids. cp 17:00 Onset: The symptoms/episode began/occurred yesterday. Severity of symptoms: in the cp emergency department the symptoms are unchanged, despite home interventions. Associated signs and symptoms: Pertinent positives: shortness of breath when lying flat, Pertinent negatives chest pain, fever, headache, sore throat, vomiting. The patient has experienced a previous episode, diagnosed with medication allergy. 17:00 Patient reports she was working in enclosed space yesterday prior to symptoms with cp cleaning chemicals. 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 Historical: - Allergies: 15:59 No Known Allergies; ca1 - Home Meds: 15:59 metformin 500 mg Oral tab 1 tab 2 times per day [Active]; metoprolol tartrate 100 mg ca1 Oral tab 1 tab 2 times per day [Active]; Atorvastatin Calcium 10mg 1 tablet every morning [Active]; amlodipine 10 mg tab 1 tab once daily [Active]; hydrochlorothiazide 25 mg Oral tab 1 tab once daily [Active]; - PMHx: 15:59 Diabetes - NIDDM; Hyperlipidemia; Hypertension; ca1 - PSHx: 15:59 Hysterectomy; Appendectomy; ca1 - Immunization history:: Adult Immunizations up to date. - Social history:: Smoking status: Patient denies any tobacco usage or history of. ROS: 17:05 Constitutional: Negative for body aches, chills, fever, poor PO intake. cp 17:05 Eyes: Negative for injury, pain, redness, and discharge. cp 17:05 ENT: Positive for difficulty swallowing, Negative for ear pain, sinus congestion, sinus pain, sore throat, difficulty handling secretions, hoarseness. 17:05 Neck: Negative for pain with movement, pain at rest, stiffness. 17:05 Cardiovascular: Positive for orthopnea, Negative for chest pain, edema, palpitations. 17:05 Respiratory: Negative for cough, wheezing. 17:05 Abdomen/GI: Negative for abdominal pain, nausea, vomiting, and diarrhea. 17:05 Skin: Negative for cellulitis, rash. 17:05 Neuro: Negative for altered mental status, headache, numbness, weakness. 17:05 All other systems are negative. Exam: 17:10 Constitutional: The patient appears in no acute distress, alert, awake, cp non-diaphoretic, non-toxic, well developed, well nourished. 17:10 Head/Face: Normocephalic, atraumatic. Eyes: Pupils equal round and reactive to light, cp extra-ocular motions intact. Lids and lashes normal. Conjunctiva and sclera are non-icteric and not injected. Cornea within normal limits. Periorbital areas with no swelling, redness, or edema. ENT: Nares patent. No nasal discharge, no septal abnormalities noted. Tympanic membranes are normal and external auditory canals are clear. Oropharynx with no redness, swelling, or masses, exudates, or evidence of obstruction, uvula midline. Mucous membranes moist. Chest/axilla: Normal chest wall appearance and motion. Nontender with no deformity. No lesions are appreciated. 17:10 Cardiovascular: Rate: normal, Rhythm: regular, Edema: is not appreciated, JVD: is not appreciated. 17:10 Respiratory: the patient does not display signs of respiratory distress, Respirations: normal, no use of accessory muscles, no retractions, labored breathing, is not present, Breath sounds: are clear throughout, no decreased breath sounds, no stridor, no wheezing. 17:10 Abdomen/GI: Exam negative for discomfort, distension, guarding, Inspection: abdomen appears normal. 17:10 Back: pain, is absent, ROM is normal. 17:10 Skin: no rash present. 17:10 Neuro: Orientation: to person, place \T\ time. Mentation: is normal, Cerebellar function: is grossly normal, Motor: moves all fours, strength is normal, Sensation: is normal. 17:20 ECG was reviewed by the Attending Physician. Vital Signs: 15:53 BP 175 / 96; Pulse 72; Resp 16 S; Temp 97.1(TE); Pulse Ox 100% on R/A; Weight 97.52 kg ca1 (R); Height 5 ft. 4 in. (162.56 cm) (R); Pain 0/10; 17:07 BP 158 / 85; Pulse 64; Resp 16; Pulse Ox 98% on R/A; iw 15:53 Body Mass Index 36.90 (97.52 kg, 162.56 cm) ca1 MDM: 16:38 Patient medically screened. cp 19:15 Data reviewed: vital signs, nurses notes, lab test result(s), EKG, radiologic studies, cp CT scan, plain films. 19:15 Differential diagnosis: epiglottitis, group A strep tonsillitis, ольга's angina, cp peritonsillar abscess pharyngitis, retropharyngeal abcess tonsillitis, uvulitis, anaphylaxis reaction. Test interpretation: by ED physician or midlevel provider: ECG. Response to treatment: the patient's symptoms have markedly improved after treatment, VSS. Patient reports symptoms improved with meds, and as a result, I will discharge patient. 05/08 16:46 Order name: Basic Metabolic Panel; Complete Time: 17:47 cp 05/08 16:46 Order name: CBC with Diff; Complete Time: 17:47 cp 05/08 16:46 Order name: LFT's; Complete Time: 17:47 cp 05/08 16:46 Order name: Magnesium; Complete Time: 17:47 cp 05/08 16:46 Order name: NT PRO-BNP; Complete Time: 17:47 cp 05/08 16:46 Order name: PT-INR; Complete Time: 17:47 cp 05/08 16:46 Order name: Accucheck Blood Glucose; Complete Time: 17:07 cp 05/08 16:46 Order name: Troponin (emerg Dept Use Only); Complete Time: 17:47 cp 05/08 16:46 Order name: XRAY Chest (1 view); Complete Time: 17:32 cp 12 16:46 Order name: EKG; Complete Time: 16:47 cp 12 16:46 Order name: Cardiac monitoring; Complete Time: 17:07 cp 12 17:15 Order name: Glucose, Ancillary Testing; Complete Time: 17:32 EDMS 05/08 17:48 Order name: CT Soft Tissue Neck W/contr; Complete Time: 18:41 cp 05/08 18:42 Interpretation: Report reviewed. cp 06/12 16:46 Order name: EKG - Nurse/Tech; Complete Time: 17:18 05/08 16:46 Order name: IV Saline Lock; Complete Time: 17:06 05/08 16:46 Order name: Labs collected and sent; Complete Time: 17:06 05/08 16:46 Order name: O2 Per Protocol; Complete Time: 17:06 05/08 16:46 Order name: O2 Sat Monitoring; Complete Time: 17:07 EC:20 Rate is 65 beats/min. Rhythm is regular. OR interval is prolonged at 208 msec. QRS cp interval is normal. QT interval is normal. T waves are Flattened in lead aVL. Interpreted by me. Reviewed by me. Administered Medications: 18:00 Drug: SOLU-Medrol 125 mg Route: IVP; Site: left antecubital; iw 18:40 Follow up: Response: No adverse reaction iw Disposition: 05/08/20 18:46 Discharged to Home. Impression: Dysphagia. - Condition is Stable. - Discharge Instructions: Dysphagia. - Prescriptions for Prednisone 20 mg Oral Tablet - take 2 tablet by ORAL route once daily for 5 days; 10 tablet. Albuterol Sulfate 90 mcg/actuation - inhale 1-2 puff by INHALATION route every 4-6 hours; 1 Inhaler. - Medication Reconciliation Form, Thank You Letter, Antibiotic Education, Prescription Opioid Use form. - Follow up: Eddie Lincoln MD; When: 2 - 3 days; Reason: Recheck today's complaints. - Problem is new. - Symptoms have improved. Addendum: 05/17/2020 13:15 Co-signature as Attending Physician, Arthur Lowe MD. m a2 Signatures: Dispatcher [employer] Sigrid Dennison RN RN iw Andry Collins PA PA Arthur Lowe MD MD ma2 Aimee Yin RN RN ca1 Corrections: (The following items were deleted from the chart) 05/08 19:16 18:46 05/08/2020 18:46 Discharged to Home. Impression: Dysphagia. Condition is Stable. iw Forms are Medication Reconciliation Form, Thank You Letter, Antibiotic Education, Prescription Opioid Use. Follow up: Eddie Lincoln; When: 2 - 3 days; Reason: Recheck today's complaints. Problem is new. Symptoms have improved. cp
[2020-05-08 19:23] VITALS: TEMP 97.1
[2020-05-08 19:24] VITALS: BP 158/85; O2SAT 98
== END 2020-05-08 19:16 | disposition home or self-care (01) ==
LOC: ER 15:47
DX: R13.10 Dysphagia, unspecified (principal); E11.9 Type 2 diabetes mellitus without complications; E78.5 Hyperlipidemia, unspecified; I10 Essential (primary) hypertension
CPT/HCPCS: 93005; 85025; 80048; 36415; 83735; 85610; 82947; 80076; 84484; 83880; 70491; 71045; 96374; 99284; J2930

== ENCOUNTER 2020-07-13 17:03 | Emergency (ER) | payer OTHER ==
--- OUTSIDE RECORDS SUMMARY | 2020-07-13 17:12 | XMS REPORT | Continuity of Care Document ---
:1960 Author Organization [facility] t Address [address] [place] [address] Care Team Providers Name Role Phone Unavailable [...] [facility] [place] No Known DA Active U 2006- [facility] [place] No Known DA Active U 2006- [facility] [place] No Known DA Active U 2006-0 [facility] [place] No Known DA Active U 2006-0 [facility] [place] Medications This patient has no known medications. Procedures This patient has no known procedures. Results This patient has no known results.
[2020-07-13 19:31] LABS: Absolute Lymphocytes (CBC) 2.6 K/uL (0.7-4.9); Basophils % 0.5 % (0-1.3); Hematocrit 37.5 % (36.0-45.0); Lymphocytes % 34.5 % (15.3-44.8); MPV 11.2 fL (7.6-11.3)
[2020-07-13] MEDS ORDERED: NA CHLORIDE 0.9% 1,000 ML ONE ×2 (19:38→20:27)
[2020-07-13 19:53] LABS: Potassium 3.8 mmol/L (3.5-5.1)
[2020-07-13 19:55] LABS: Urine Bacteria 20-50 /HPF (<20); Urine Culture Reflex Order REFLEXED; Urine RBC <5 /HPF (NONE SEEN)
[2020-07-13 19:56] LABS: Urine Blood NEGATIVE (NEG); Urine Glucose 2+ (NEG); Urine Protein TRACE (NEG); Urine Specific Gravity 1.025 (1.005-1.030)
[2020-07-13] MEDS ORDERED: CEFTRIAXONE/SWI 1gm 1 GM/10 ML SYR ONE (20:27)
[2020-07-13] MEDS ORDERED: INSULIN -REGULAR HUMAN 50 UNIT/0.5 ML ML ONE (20:29)
--- NOTE | 2020-07-13 20:46 | RAD REPORT ---
EXAM DESCRIPTION: CT - Head Brain Wo Cont - 07/13/2020 8:37 pm CLINICAL HISTORY: HEADACHE Headache, drowsiness COMPARISON: Head Brain Wo Cont dated 07/09/2018; Head Brain Wo Cont dated 03/06/2017 TECHNIQUE: All CT scans are performed using dose optimization technique as appropriate and may inclu de automated exposure control or mA/KV adjustment according to patient size. FINDINGS: No intracranial hemorrhage, hydrocephalus or extra-axial fluid collection.No areas of brai n edema or evidence of midline shift. The paranasal sinuses and mastoids are clear. The calvarium is intact. IMPRESSION: No acute intracranial abnormality.
--- NOTE | 2020-07-13 21:30 | ER ---
Nurse's Notes [facility] Name: Fang Aldridge Age: 59 yrs Sex: Female : 1960 Arrival Date: 07/13/2020 Time: 17:05 Bed 14 Private MD: Eddie Lincoln R Diagnosis: Type 2 diabetes mellitus;Visual disturbances-blurry, hyperglycemia Presentation: 07/13 17:38 Chief complaint: Patient states: Bld sugar at 371 1hr [employer]. Blurring of vision x 2 ca1 weeks. Headache described as pressure, more on the temples and around the eye. Reports nausea. Denies vomiting. Coronavirus screen: Client denies travel out of the [place] in the last 14 days. At this time, the client does not indicate any symptoms associated with coronavirus-19. Ebola Screen: Patient negative for fever greater than or equal to 101.5 degrees Fahrenheit, and additional compatible Ebola Virus Disease symptoms Patient denies exposure to infectious person. Patient denies travel to an Ebola-affected area in the 21 days before illness onset. No symptoms or risks identified at this time. Initial Sepsis Screen: Does the patient meet any 2 criteria? No. Patient's initial sepsis screen is negative. Does the patient have a suspected source of infection? No. Patient's initial sepsis screen is negative. Risk Assessment: Do you want to hurt yourself or someone else? Patient reports no desire to harm self or others. Onset of symptoms was July 13, 2020. 17:38 Method Of Arrival: Ambulatory ca1 17:38 Acuity: CONNIE 3 ca1 Historical: - Allergies: 17:41 No Known Allergies; ca1 - PMHx: 17:41 Diabetes - NIDDM; Hyperlipidemia; Hypertension; ca1 - PSHx: 17:41 Hysterectomy; Appendectomy; ca1 - Immunization history:: Adult Immunizations up to date. - Social history:: Smoking status: Patient denies any tobacco usage or history of. - Family history:: not pertinent. Screenin:20 Abuse screen: Denies threats or abuse. Nutritional screening: No deficits noted. tw2 Tuberculosis screening: No symptoms or risk factors identified. Fall Risk None identified. Assessment: 19:53 General: Appears in no apparent distress. comfortable, Behavior is calm, cooperative. mg2 Pain: Complains of pain in head. Neuro: Level of Consciousness is awake, alert, obeys commands, Oriented to person, place, time, situation. Cardiovascular: Capillary refill < 3 seconds Patient's skin is warm and dry. Respiratory: Airway is patent Respiratory effort is even, unlabored, Respiratory pattern is regular, symmetrical. GI: Reports lower abdominal pain. : Urine is cloudy. EENT: No signs and/or symptoms were reported regarding the EENT system. Derm: Skin is intact, is healthy with good turgor, Skin is pink, warm \T\ dry. normal. Musculoskeletal: Circulation, motion, and sensation intact. Capillary refill < 3 seconds. 20:58 Reassessment: Patient appears in no apparent distress at this time. Patient and/or mg2 family updated on plan of care and expected duration. Pain level reassessed. Patient is alert, oriented x 3, equal unlabored respirations, skin warm/dry/pink. sister Emerald called and updated about the patient. 22:00 Reassessment: Patient denies pain at this time. Patient states feeling better. Patient mg2 states symptoms have improved. Vital Signs: 17:38 BP 142 / 100; Pulse 73; Resp 15 S; Temp 98.4(O); Pulse Ox 100% on R/A; Weight 92.99 kg ca1 (R); Height 5 ft. 4 in. (162.56 cm) (R); 19:54 BP 135 / 82; Pulse 80; Resp 18; Pulse Ox 100% on R/A; mg2 22:00 BP 132 / 78; Pulse 81; Resp 18; Temp 98.5; Pulse Ox 100% on R/A; mg2 17:38 Body Mass Index 35.19 (92.99 kg, 162.56 cm) ca1 ED Course: 17:05 Patient arrived in ED. ag5 17:05 Eddie Lincoln MD is Private Physician. ag5 17:40 Hien Patterson RN is Primary Nurse. tw2 17:40 Triage completed. ca1 17:41 Arm band placed on right wrist. ca1 19:15 Inserted saline lock: 20 gauge in right antecubital area, using aseptic technique. mg2 Blood collected. 19:36 Andry Saavedra MD is Attending Physician. karie 19:54 Patient has correct armband on for positive identification. Pulse ox on. NIBP on. Door mg2 closed. 19:54 No provider procedures requiring assistance completed. mg2 20:37 CT Head Brain wo Cont In Process Unspecified. EDMS 21:29 Eddie Lincoln MD is Referral Physician. karie 22:01 IV discontinued, intact, bleeding controlled, No redness/swelling at site. Pressure mg2 dressing applied. Administered Medications: 19:28 Drug: NS 0.9% 1000 ml Route: IV; Rate: 1000 ml; Site: right antecubital; mg2 20:31 Drug: NS 0.9% 1000 ml Route: IV; Rate: 1 bolus; Site: right antecubital; mg2 20:31 Drug: Insulin Regular Human 10 units {Co-Signature: rv (Ramo Ortez RN).} Route: mg2 IVP; Site: right antecubital; 21:52 Follow up: Response: No adverse reaction; Blood sugar is lowered mg2 20:31 Drug: Rocephin 1 grams Route: IV; Rate: per protocol; Site: right antecubital; mg2 21:52 Follow up: Response: No adverse reaction; IV Status: Completed infusion mg2 21:51 Drug: metFORMIN 1000 mg Route: PO; mg2 21:52 Follow up: Response: No adverse reaction; Medication administered at discharge. mg2 Outcome: 21:30 Discharge ordered by . karie 22:01 Discharged to home ambulatory. mg2 22:01 Condition: stable 22:01 Discharge instructions given to patient, Instructed on discharge instructions, follow up and referral plans. medication usage, Demonstrated understanding of instructions, follow-up care, medications, Prescriptions given X 1. 22:01 Patient left the ED. mg2 Signatures: Dispatcher [employer] EDGA Andry Saavedra MD MD cha Wise, Tara, RN RN tw2 Colton Stauffer RN RN mg2 Aimee Yin RN RN ca1 [facility] Ramo Ortez RN rv
--- NOTE | 2020-07-13 21:30 | EDPHYS ---
Physician Documentation [facility] Name: Fang Aldridge Age: 59 yrs Sex: Female : 1960 Arrival Date: 07/13/2020 Time: 17:05 Bed 14 Private MD: Eddie Lincoln R ED Physician Andry Saavedra HPI: 07/13 20:07 This 59 yrs old Black Female presents to ER via Ambulatory with complaints of Eye karie Problem, Head Pressure. 20:07 blurry vision. Onset: The symptoms/episode began/occurred 3 day(s) ago. Duration: the karie symptoms are continuous. Aggravated by high glucose. Associated signs and symptoms: Pertinent positives: None. Pertinent negatives: chills, dizziness, ear ache, fever, headache, runny nose. Patient wears glasses. Severity of symptoms: At their worst the symptoms were mild in the emergency department the symptoms are unchanged. The patient has experienced similar episodes in the past, several times. Historical: - Allergies: 17:41 No Known Allergies; ca1 - PMHx: 17:41 Diabetes - NIDDM; Hyperlipidemia; Hypertension; ca1 - PSHx: 17:41 Hysterectomy; Appendectomy; ca1 - Immunization history:: Adult Immunizations up to date. - Social history:: Smoking status: Patient denies any tobacco usage or history of. - Family history:: not pertinent. ROS: 20:07 Constitutional: Negative for fever, chills, and weight loss, ENT: Negative for injury, karie pain, and discharge, Neck: Negative for injury, pain, and swelling, Cardiovascular: Negative for chest pain, palpitations, and edema, Respiratory: Negative for shortness of breath, cough, wheezing, and pleuritic chest pain, Abdomen/GI: Negative for abdominal pain, nausea, vomiting, diarrhea, and constipation, Back: Negative for injury and pain, : Negative for injury, bleeding, discharge, and swelling, MS/Extremity: Negative for injury and deformity, Skin: Negative for injury, rash, and discoloration, Psych: Negative for depression, anxiety, suicide ideation, homicidal ideation, and hallucinations, Allergy/Immunology: Negative for hives, rash, and allergies, Endocrine: Negative for neck swelling, polydipsia, polyuria, polyphagia, and marked weight changes, Hematologic/Lymphatic: Negative for swollen nodes, abnormal bleeding, and unusual bruising. 20:07 Eyes: Positive for blurry vision. 20:07 Neuro: Positive for headache. Exam: 20:07 Constitutional: This is a well developed, well nourished patient who is awake, alert, karie and in no acute distress. Head/Face: Normocephalic, atraumatic. Eyes: Pupils equal round and reactive to light, extra-ocular motions intact. Lids and lashes normal. Conjunctiva and sclera are non-icteric and not injected. Cornea within normal limits. Periorbital areas with no swelling, redness, or edema. ENT: Nares patent. No nasal discharge, no septal abnormalities noted. Tympanic membranes are normal and external auditory canals are clear. Oropharynx with no redness, swelling, or masses, exudates, or evidence of obstruction, uvula midline. Mucous membranes moist. Neck: Trachea midline, no thyromegaly or masses palpated, and no cervical lymphadenopathy. Supple, full range of motion without nuchal rigidity, or vertebral point tenderness. No Meningismus. Chest/axilla: Normal chest wall appearance and motion. Nontender with no deformity. No lesions are appreciated. Cardiovascular: Regular rate and rhythm with a normal S1 and S2. No gallops, murmurs, or rubs. Normal PMI, no JVD. No pulse deficits. Respiratory: Lungs have equal breath sounds bilaterally, clear to auscultation and percussion. No rales, rhonchi or wheezes noted. No increased work of breathing, no retractions or nasal flaring. Abdomen/GI: Soft, non-tender, with normal bowel sounds. No distension or tympany. No guarding or rebound. No evidence of tenderness throughout. Back: No spinal tenderness. No costovertebral tenderness. Full range of motion. Skin: Warm, dry with normal turgor. Normal color with no rashes, no lesions, and no evidence of cellulitis. MS/ Extremity: Pulses equal, no cyanosis. Neurovascular intact. Full, normal range of motion. Neuro: Awake and alert, GCS 15, oriented to person, place, time, and situation. Cranial nerves II-XII grossly intact. Motor strength 5/5 in all extremities. Sensory grossly intact. Cerebellar exam normal. Normal gait. Psych: Awake, alert, with orientation to person, place and time. Behavior, mood, and affect are within normal limits. Vital Signs: 17:38 BP 142 / 100; Pulse 73; Resp 15 S; Temp 98.4(O); Pulse Ox 100% on R/A; Weight 92.99 kg ca1 (R); Height 5 ft. 4 in. (162.56 cm) (R); 19:54 BP 135 / 82; Pulse 80; Resp 18; Pulse Ox 100% on R/A; mg2 22:00 BP 132 / 78; Pulse 81; Resp 18; Temp 98.5; Pulse Ox 100% on R/A; mg2 17:38 Body Mass Index 35.19 (92.99 kg, 162.56 cm) ca1 MDM: 19:[address] [facility] 20:10 Differential diagnosis: Corneal abrasion of. Data reviewed: vital signs, nurses notes, [facility] lab test result(s), EKG, radiologic studies, CT scan. Data interpreted: quality assurance monitor chassis: not applicable for this patient encounter. rate is 80 beats/min, Pulse oximetry: on room air is 100 %. Test interpretation: by ED physician or midlevel provider: ECG, plain radiologic studies. Counseling: I had a detailed discussion with the patient and/or guardian regarding: the historical points, exam findings, and any diagnostic results supporting the discharge/admit diagnosis, lab results, radiology results, the need for outpatient follow up. 21:28 ED course: labs explained, pt encouraged to follow , ada diet, return if worse. [facility] 07/13 19:16 Order name: CBC with Diff; Complete Time: 20:05 [facility] 07/13 19:16 Order name: BMP; Complete Time: 20:05 [facility] 07/13 19:26 Order name: Urine Microscopic Only; Complete Time: 20:05 [facility] 07/13 19:28 Order name: Urine --Ancillary (enter results); Complete Time: 20:05 [facility] 07/13 19:28 Order name: Urine Dipstick--Ancillary (enter results); Complete Time: 20:05 [facility] 07/13 19:31 Order name: Glucose, Ancillary Testing; Complete Time: 20:05 [facility] 07/13 19:56 Order name: Urine Culture [facility] 07/13 20:10 Order name: CT Head Brain wo Cont; Complete Time: 21:24 [facility] 07/13 21:49 Order name: Glucose, Ancillary Testing [facility] 07/13 19:16 Order name: IV Saline Lock; Complete Time: 19:16 mg2 07/13 19:16 Order name: Finger Stick; Complete Time: 19:29 mg2 07/13 20:11 Order name: EKG - Nurse/Tech; Complete Time: 20:31 karie Administered Medications: 19:28 Drug: NS 0.9% 1000 ml Route: IV; Rate: 1000 ml; Site: right antecubital; mg2 20:31 Drug: NS 0.9% 1000 ml Route: IV; Rate: 1 bolus; Site: right antecubital; mg2 20:31 Drug: Insulin Regular Human 10 units {Co-Signature: rv (Ramo Ortez RN).} Route: mg2 IVP; Site: right antecubital; 21:52 Follow up: Response: No adverse reaction; Blood sugar is lowered mg2 20:31 Drug: Rocephin 1 grams Route: IV; Rate: per protocol; Site: right antecubital; mg2 21:52 Follow up: Response: No adverse reaction; IV Status: Completed infusion mg2 21:51 Drug: metFORMIN 1000 mg Route: PO; mg2 21:52 Follow up: Response: No adverse reaction; Medication administered at discharge. mg2 Disposition: 07/13/20 21:30 Discharged to Home. Impression: Type 2 diabetes mellitus, Visual disturbances - blurry, hyperglycemia. - Condition is Stable. - Discharge Instructions: Blurred Vision, Adult, Type 2 Diabetes Mellitus, Diagnosis, Adult, Type 2 Diabetes Mellitus, Diagnosis, Adult, [id number]. - Prescriptions for Metformin 1,000 mg Oral Tablet - take 1 tablet by ORAL route every 12 hours with morning and evening meals; 20 tablet. - Medication Reconciliation Form, Thank You Letter, Antibiotic Education, Prescription Opioid Use form. - Follow up: Eddie Lincoln MD; When: 2 - 3 days; Reason: Recheck today's complaints, Continuance of care, Re-evaluation by your physician. - Problem is new. - Symptoms have improved. Signatures: Dispatcher [employer] EDAndry Bangura MD MD cha Gardose, Michele, RN RN mg2 Aimee Yin RN RN ca1 Ramo Ortez RN rv Corrections: (The following items were deleted from the chart) 20:58 20:07 Urine Culture+[id number].LAB.BRZ ordered. EDMS EDMS 22:01 21:30 07/13/2020 21:30 Discharged to Home. Impression: Type 2 diabetes mellitus; Visual mg2 disturbances - blurry, hyperglycemia. Condition is Stable. Forms are Medication Reconciliation Form, Thank You Letter, Antibiotic Education, Prescription Opioid Use. Follow up: Eddie Lincoln; When: 2 - 3 days; Reason: Recheck today's complaints, Continuance of care, Re-evaluation by your physician. Problem is new. Symptoms have improved. karie
[2020-07-13] MEDS ORDERED: METFORMIN HCL 500 MG TAB ONE (21:51)
[2020-07-13 22:56] VITALS: O2SAT 100
[2020-07-13 22:58] VITALS: BP 132/78; TEMP 98.5
== END 2020-07-13 22:01 | disposition home or self-care (01) ==
LOC: ER 17:03
DX: E11.65 Type 2 diabetes mellitus with hyperglycemia (principal); I10 Essential (primary) hypertension
CPT/HCPCS: 87088; 85025; 87086; 80048; 36415; 81025; 82947 ×2; 70450; J0696; J7030 ×2; 81003; 81015

== ENCOUNTER 2021-02-13 18:09 | Emergency (ER) | payer BC, OTHER ==
--- OUTSIDE RECORDS SUMMARY | 2021-02-13 18:12 | XMS REPORT | Continuity of Care Document ---
:1960 Author Organization [facility] t Address [address] [place] [address] Care Team Providers Name Role Phone Unavailable Unavailable Unavailable Payers Payer Name Policy Type Policy Number Effective Date Expiration Date S ource Problems This patient has no known problems. Allergies, Adverse Reactions, Alerts Allergy Allergy Status Severity Reaction(s) Onset Inactive Treating Comm ents Source Name Type Date Date Clinician No Known DA Active U 2006- [facility] [place] No Known DA Active U 2006-0 [facility] [place] No Known DA Active U 2006- [facility] Contrast 6-14 [facility] [place] No Known DA Active U 2006- [facility] [place] No Known DA Active U 2006-0 [facility] Food 6[facility] [place] Medications This patient has no known medications. Procedures This patient has no known procedures. Results This patient has no known results.
[2021-02-13 20:09] LABS: Potassium 3.7 mmol/L (3.5-5.1)
[2021-02-13 20:13] LABS: Basophils % 0.8 % (0-1.3); Hematocrit 38.5 % (36.0-45.0); Lymphocytes % 23.4 % (15.3-44.8); MPV 11.1 fL (7.6-11.3); RBC Red Blood Cell Count 4.59 M/uL (3.86-4.86)
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
[2021-02-13] MEDS ORDERED: DIAZEPAM 5 MG TABLET ONE (21:19)
[2021-02-13] MEDS ORDERED: INSULIN -REGULAR HUMAN 50 UNIT/0.5 ML ML ONE (21:19)
[2021-02-13] MEDS ORDERED: NA CHLORIDE 0.9% 500 ML ONE (21:20)
[2021-02-13] MEDS ORDERED: MAGNESIUM CITRATE 300 ML BOT ONE (21:20)
[2021-02-13 22:21] VITALS: TEMP 97.8
[2021-02-13 22:24] VITALS: BP 129/88; O2SAT 99
== END 2021-02-13 22:12 | disposition home or self-care (01) ==
LOC: ER 18:09
DX: R10.32 Left lower quadrant pain (principal); M54.5 Low back pain; V43.53XA Car driver injured in collision with pick-up truck in traffic accident, initial encounter; I10 Essential (primary) hypertension; E11.9 Type 2 diabetes mellitus without complications; E78.5 Hyperlipidemia, unspecified
CPT/HCPCS: 96361; 85025; 80048; 36415; 82565; 70450; 72125; 71260; 74177; 96360; 96372; 99284; Q9967; J7040